=== PATIENT | female | born 1975 | race Native Hawaiian/Other Pacific Islander ===

== ENCOUNTER → 2016-07-30 | Outpatient (CLI) | payer MEDICAID ==
[~2016-07-30] MED LIST: EXCETAB PO; Z.0.NO CURRENT MEDS
[2016-07-30 11:07] LABS: HEMATOCRIT 36.5 % (35.0-46.0); MEAN CELL VOLUME 76.6 FL (80.0-100.0); MEAN CORPUSCULAR HEMOGLOBIN 25.1 PG (27.0-34.0); MEAN CORPUSCULAR HGB CONC 32.8 % (32.0-36.0); PLATELET COUNT 284 TH/MM3 (150-450); RED BLOOD COUNT 4.76 MIL/MM3 (4.00-5.30); REVIEW FLAG FINAL
[2016-07-30 11:28] LABS: BICARBONATE 25.8 MEQ/L (21.0-32.0); INDIRECT BILIRUBIN 0.5 MG/DL (0.0-0.8); POTASSIUM 4.2 MEQ/L (3.5-5.1); TOTAL BILIRUBIN ADULT 0.6 MG/DL (0.2-1.0)
== END ==
LOC: CPRE 09:16
PROVIDERS: ATTEND Obstetrics & Gynecology
DX: Z01.812 Encounter for preprocedural laboratory examination (principal); Z30.2 Encounter for sterilization; O02.1 Missed abortion
CPT/HCPCS: 36415; 80048; 80076; 85027; 86850; 86900; 86901

== ENCOUNTER → 2016-07-31 | Day surgery (SDC) | payer MEDICAID ==
[~2016-07-31] VITALS: Ht 152.4 cm; Wt 71.7 kg
[~2016-07-31] MED LIST changes: +*MEPERIDINE 25 MG INJ VIAL PERIprocedural Use ONLY ONE; +*ONDANSETRON 4 MG VIAL PERIprocedural Use ONLY ONE; +BUPIVACAINE/EPINEPHRINE 0.5% PF 30 ML VIAL ONE; +DEXAMETHASONE SOD PHOS 4 MG/ML VIAL ONE; +FAMOTIDINE 20 MG/2 ML VIAL ONE; +INSULIN HUMAN REGULAR 1,000 UNITS/10 ML VIAL SQ PRN; +LACTATED RINGER'S 1000 ML IV SCH; +METOPROLOL TARTRATE 25 MG TAB PO PRN; +MIDAZOLAM HCL 2 MG/2 ML VIAL ONE; +NEOSTIGMINE 3 MG/3 ML SYR IV ONE; +ONDANSETRON HCL 4 MG/2 ML VIAL IV PUSH ONE; +PROPOFOL 200 MG/20 ML AMP IV ONE; +SODIUM CHLORID 0.9% 500 ML IV SCH; -Z.0.NO CURRENT MEDS; +ceFAZolin 1,000 MG/NS 100 ML IV SCH; +fentaNYL CITRATE 250 MCG/5 ML AMP ONE
[2016-07-31 08:24] VITALS: BP 95/61; PULSE 83; RESP 16; TEMP 97.2; O2SAT 99
[2016-07-31 12:50] VITALS: BP 97/57; PULSE 65; RESP 16; TEMP 97.6; O2SAT 99
--- NOTE | 2016-08-04 09:13 | MP ---
cc: BEATRIS GONZALEZ DATE OF SURGERY 07/31/2016 PREOPERATIVE DIAGNOSIS Incomplete miscarriage and desire for sterility. POSTOPERATIVE DIAGNOSIS Incomplete miscarriage and desire for sterility. PROCEDURE Sharp and suction curettage, uterine curettage and laparoscopic bilateral tubal ligation. ANESTHESIA General endotracheal SURGEON Beatris Gonzalez MD CARPENTER MAINTENANCE Ginger Perales FINDINGS Examination under anesthesia revealed products of conception extruding from the os. The os was open about 1 cm. The D&C was performed unremarkably. Laparoscopic evaluation of the abdominal and pelvic contents revealed normal liver edge, gallbladder, pelvic contents with a normal-sized uterus, tubes and ovaries. Both tubes were burned in three places and then cut using laparoscopic scissors. There was no evidence of other pathology or iatrogenic injury. ESTIMATED BLOOD LOSS Negligible. PATHOLOGY Products of conception. COUNTS Sponge, instrument, needle count were correct. CONDITION The patient tolerated the tolerated the procedure well. PROCEDURE DETAILS The patient was identified as Bella Morales, her permit was reviewed in the holding. She was taken to the operating room, placed under general endotracheal anesthesia in the dorsal lithotomy position. She was given 1 gram Ancef IV within an hour of incision. She was prepped and draped in the usual sterile fashion and the bladder was emptied by the street sweeper operator. A time-out was performed with all in attendance. Examination under anesthesia was performed and the cervix was gently grasped and dilated to allow the passage of the side 8 curved curette. This was used to remove the products of conception followed by a banjo curette and then a final pass with the suction curette. Bimanual massage revealed a firm uterus. ____ peritoneal cavity the findings were as noted as above. Entering the peritoneal cavity was done by placing a small incision in the umbilicus, placing the trocar and sleeve through the incision and after assuring adequate entry, insufflating with 2 liters of CO2. Then a second set trocar and sleeve were placed in the suprapubic area. Then systematic evaluation of the abdominal and pelvic contents was performed with the findings as noted above. The right tube was grasped and held away from all other structures, burned in three places and then the left tube was treated the same. Then the laparoscopic scissors were used to cut these. There was no evidence of iatrogenic injury. No other intrinsic pathology. The pneumoperitoneum was released under visualization and the trocar sleeves were removed. The incisions were closed with single interrupted. The vaginal instrumentation was removed. She was placed in dorsal supine position, awoken and taken to the recovery room stable condition. MD DOUG Thomas/KK /2:02 PM /9:08 AM
== END | disposition home or self-care (01) ==
LOC: HSDC 07:49
PROVIDERS: ATTEND Obstetrics & Gynecology
DX: Z30.2 Encounter for sterilization (principal); O03.4 Incomplete spontaneous abortion without complication
CPT/HCPCS: 00851; 58671; 59820; J0690; J1100; J2175; J2250; J2405; J2710; J3010; J7120

== ENCOUNTER 2017-02-15 13:58 | Emergency (ER) | payer MEDICAID ==
[~2017-02-15] VITALS: Ht 152.4 cm; Wt 69.7 kg
[~2017-02-15 13:58] MED LIST changes: -*MEPERIDINE 25 MG INJ VIAL PERIprocedural Use ONLY ONE; -*ONDANSETRON 4 MG VIAL PERIprocedural Use ONLY ONE; -BUPIVACAINE/EPINEPHRINE 0.5% PF 30 ML VIAL ONE; -DEXAMETHASONE SOD PHOS 4 MG/ML VIAL ONE; -FAMOTIDINE 20 MG/2 ML VIAL ONE; -INSULIN HUMAN REGULAR 1,000 UNITS/10 ML VIAL SQ PRN; -LACTATED RINGER'S 1000 ML IV SCH; -METOPROLOL TARTRATE 25 MG TAB PO PRN; -MIDAZOLAM HCL 2 MG/2 ML VIAL ONE; -NEOSTIGMINE 3 MG/3 ML SYR IV ONE; -ONDANSETRON HCL 4 MG/2 ML VIAL IV PUSH ONE; -PROPOFOL 200 MG/20 ML AMP IV ONE; -SODIUM CHLORID 0.9% 500 ML IV SCH; -ceFAZolin 1,000 MG/NS 100 ML IV SCH; -fentaNYL CITRATE 250 MCG/5 ML AMP ONE
[2017-02-15 14:25] VITALS: BP 109/68; PULSE 73; RESP 16; TEMP 98.8; O2SAT 100
[2017-02-15] MEDS ORDERED: SODIUM CHLOR 0.9% 1000 ML INJ 1,000 ML IV SCH (15:31)
[2017-02-15] MEDS ORDERED: SODIUM CHLORIDE 0.9% FLUSH 10 ML FLUSH IV FLUSH PRN (15:45)
[2017-02-15] MEDS ORDERED: ONDANSETRON HCL 4 MG/2 ML VIAL IVP ONE (15:45)
[2017-02-15] MEDS ORDERED: PANTOPRAZOLE SODIUM 40 MG VIAL IV PUSH ONE (15:45)
[2017-02-15 16:00] LABS: AUTOMATED NEUTROPHIL # 3.4 TH/MM3 (1.8-7.7); BASOPHIL % 0.4 % (0.0-2.0); EOSINOPHIL # 0.1 TH/MM3 (0-0.4); EOSINOPHIL % 1.4 % (0.0-4.0); HEMATOCRIT 36.2 % (35.0-46.0); MEAN CELL VOLUME 72.8 FL (80.0-100.0); MEAN CORPUSCULAR HEMOGLOBIN 23.3 PG (27.0-34.0); MONO % 9.8 % (0.0-8.0); NEUT % 55.4 % (16.0-70.0); PLATELET COUNT 298 TH/MM3 (150-450); RED BLOOD COUNT 4.97 MIL/MM3 (4.00-5.30); RED CELL DISTRIBUTION WIDTH 14.7 % (11.6-17.2); WHITE BLOOD COUNT 6.1 TH/MM3 (4.0-11.0)
[2017-02-15 16:01] LABS: GLUCOSE,URINE NEG (NEG); KETONE, URINE NEG (NEG); NITRITE,URINE NEG (NEG)
[2017-02-15 16:03] LABS: BLOOD, URINE TRACE (NEG)
[2017-02-15 16:04] LABS: METHOD OF COLLECTION CLEAN CATCH; URINE COLOR YELLOW (YELLW/STRAW)
[2017-02-15 16:05] LABS: COMMENT (UR) CULT NOT INDICATED; CULTURE IF INDICATED CULT NOT INDICATED; RBC, URINE 0-3 /hpf (0-3); SQUAMOUS EPITHELIAL CELL URINE 0-5 /hpf (0-5); WBC, URINE 0-2 /hpf (0-5)
[2017-02-15 16:06] LABS: HEMO FLAGS AUTO DIFF
[2017-02-15 16:09] LABS: CHLORIDE 105 MEQ/L (98-107); POTASSIUM 3.8 MEQ/L (3.5-5.1); SODIUM (NA) 138 MEQ/L (136-145)
[2017-02-15 16:13] LABS: ANION GAP 8 MEQ/L (5-15); BICARBONATE 24.7 MEQ/L (21.0-32.0)
[2017-02-15 16:14] LABS: BLOOD UREA NITROGEN 7 MG/DL (7-18)
[2017-02-15 16:16] LABS: ALT (GPT) 24 U/L (10-53); AST (GOT) 30 U/L (15-37); GLOMERULAR FILTRATION RATE 111 ML/MIN (>89)
[2017-02-15 16:18] LABS: TOTAL BILIRUBIN ADULT 0.8 MG/DL (0.2-1.0)
[2017-02-15 16:19] LABS: ALKALINE PHOSPHATASE 87 U/L (45-117)
[2017-02-15 16:34] LABS: SCAN/DIFF AUTO DIFF CONFIRMED
[2017-02-15 16:57] VITALS: BP 106/77; PULSE 71; RESP 16; O2SAT 98
[2017-02-15] MEDS ORDERED: IOHEXOL 350 MG/ML 10 ML VIAL (for RAD DIAG) IVCONTRAST ONE (17:30)
--- NOTE | 2017-02-15 17:56 | RADRPT ---
EXAM DATE/TIME: 02/15/2017 17:25 [facility] COMPARISON: No previous studies available for comparison. INDICATIONS : Upper abdominal pain with nausea. IV CONTRAST: 95 cc Omnipaque 350 (iohexol) IV ORAL CONTRAST: No oral contrast ingested. RADIATION DOSE: 10.38 CTDIvol (mGy) MEDICAL HISTORY : None SURGICAL HISTORY : Appendectomy. ENCOUNTER: Initial ACUITY: 2 days PAIN SCALE: 5/10 LOCATION: upper quadrant TECHNIQUE: Volumetric scanning of the abdomen and pelvis was performed. Using automated exposure control and ad justment of the mA and/or kV according to patient size, radiation dose was kept as low as reasonably achievable to obtain optimal diagnostic quality images. DICOM format image data is available electro nically for review and comparison. FINDINGS: LOWER LUNGS: Trace groundglass opacities at the lung bases consistent with atelectasis. LIVER: Homogeneous density without lesion. There is no dilation of the biliary tree. No calcified gallston es. SPLEEN: Normal size without lesion. PANCREAS: Within normal limits. KIDNEYS: 2-3 mm calyceal calculus in the posterior mid right kidney. Kidneys otherwise demonstrate symmetrical enhancement without evidence for hydronephrosis ADRENAL GLANDS: Within normal limits. VASCULAR: There is no aortic aneurysm. BOWEL/MESENTERY: The stomach, small bowel, and colon demonstrate no acute abnormality. There is no free intraperitone al air or fluid. ABDOMINAL WALL: Within normal limits. RETROPERITONEUM: No significant adenopathy. BLADDER: No wall thickening or mass. REPRODUCTIVE: Small endometrial fluid. Otherwise, uterus and adnexa are unremarkable for age. INGUINAL: There is no lymphadenopathy or hernia. MUSCULOSKELETAL: Within normal limits for patient age. CONCLUSION: 1. 2-3 mm nonobstructing calyceal calculus in the posterior mid right kidney. 2. Small amount of endometrial fluid, likely related to patient's phase of menstrual cycle. 3. Otherwise, no acute CT findings to explain patient's abdominal pain. Kenny Rush MD on February 15, 2017 at 17:45 Board Certified Radiologist. This report was verified electronically.
--- NOTE | 2017-02-15 18:07 | PD ---
HPI Chief Complaint: Abdominal Pain Time Seen by Provider: 15:25 Travel History International Travel<30 days: No Contact w/Intl Traveler<30days: No Traveled to known affect area: No History of Present Illness HPI 42 y/o female presents with upper abdominal pain and nausea since last night. She denies other concurrent complaints. She states her last menstrual cycle was at the end of last month. Quality is sharp. Severity is mild. She denies migration the pain. She states she has had endoscopy at Dr guidry that was okay. She states she has been taking Excedrin for migraines recently. PFSH Past Medical History Cancer: No Cardiovascular Problems: No Diabetes: No Diminished Hearing: No Endocrine: No Genitourinary: No Headaches: Yes Hepatitis: No Hiatal Hernia: No Immune Disorder: No Musculoskeletal: Yes (CHRONIC BACK PAIN) Psychiatric: No Reproductive: Yes (MISCARAGE) Respiratory: No Migraines: Yes Thyroid Disease: No Tetanus Vaccination: > 5 Years Influenza Vaccination: No ?: Not LMP: 01/28/17 Menopausal: No : 4 Para: 4 Miscarriage: 2 Past Surgical History AICD: No Appendectomy: Yes Joint Replacement: No Pacemaker: No Social History Alcohol Use: No Tobacco Use: No Substance Use: No Allergies-Medications (Allergen,Severity, Reaction): Coded Allergies: ibuprofen (Unverified Adverse Reaction, Mild, stomach pain, 02/15/17) Reported Meds & Prescriptions Reported Meds & Active Scripts Active No Active Prescriptions or Reported Medications Review of Systems Except as stated in HPI: all other systems reviewed are Neg Physical Exam Narrative GENERAL: Well-nourished, well-developed patient. Well-appearing SKIN: Warm and dry. HEAD: Normocephalic and atraumatic. EYES: No injection or drainage. ENT: No nasal drainage noted. NECK: Supple, trachea midline. CARDIOVASCULAR: Regular rate and rhythm RESPIRATORY: Breath sounds equal bilaterally. No accessory muscle use. GASTROINTESTINAL: Abdomen soft, mild tenderness epigastric area, nondistended. EXTREMITIES: No edema. BACK: Nontender without obvious deformity. NEUROLOGICAL: Awake and alert. Motor and sensory grossly within normal limits. Normal speech. Data Data Last Documented VS Vital Signs Date Time Temp Pulse Resp B/P (MAP) Pulse Ox O2 Delivery O2 Flow Rate FiO2 02/15/17 18:25 68 16 109/74 (86) 98 02/15/17 16:57 Room Air 02/15/17 14:25 98.8 Orders Orders Complete Blood Count With Diff (02/15/17 15:31) Comprehensive Metabolic Panel (02/15/17 15:31) Lipase (02/15/17 15:31) Urinalysis - C+S If Indicated (02/15/17 15:31) Iv Access Insert/Monitor (02/15/17 15:31) Ecg Monitoring (02/15/17 15:31) Oximetry (02/15/17 15:31) NPO (02/15/17 15:31) Ondansetron Inj (Zofran Inj) (02/15/17 15:45) Sodium Chlor 0.9% 1000 Ml Inj (Ns 1000 M (02/15/17 15:31) Sodium Chloride 0.9% Flush (Ns Flush) (02/15/17 15:45) Ed Urine Pregnancytest Poc (02/15/17 15:31) Pantoprazole Inj (Protonix Inj) (02/15/17 15:45) Ct Abd/Pel W Iv Contrast(Rout) (02/15/17 ) Iohexol 350 Inj (Omnipaque 350 Inj) (02/15/17 17:30) Labs Laboratory Tests Test 02/15/17 15:50 White Blood Count 6.1 TH/MM3 Red Blood Count 4.97 MIL/MM3 Hemoglobin 11.6 GM/DL Hematocrit 36.2 % Mean Corpuscular Volume 72.8 FL Mean Corpuscular Hemoglobin 23.3 PG Mean Corpuscular Hemoglobin Concent 32.0 % Red Cell Distribution Width 14.7 % Platelet Count 298 TH/MM3 Mean Platelet Volume 7.6 FL Neutrophils (%) (Auto) 55.4 % Lymphocytes (%) (Auto) 33.0 % Monocytes (%) (Auto) 9.8 % Eosinophils (%) (Auto) 1.4 % Basophils (%) (Auto) 0.4 % Neutrophils # (Auto) 3.4 TH/MM3 Lymphocytes # (Auto) 2.0 TH/MM3 Monocytes # (Auto) 0.6 TH/MM3 Eosinophils # (Auto) 0.1 TH/MM3 Basophils # (Auto) 0.0 TH/MM3 CBC Comment AUTO DIFF Differential Comment AUTO DIFF CONFIRMED Urine Collection Type CLEAN CATCH Urine Color YELLOW Urine Turbidity CLEAR Urine pH 6.0 Urine Specific [place] 1.009 Urine Protein NEG mg/dL Urine Glucose (UA) NEG mg/dL Urine Ketones NEG mg/dL Urine Occult Blood TRACE Urine Nitrite NEG Urine Bilirubin NEG Urine Leukocyte Esterase TRACE Urine RBC 0-3 /hpf Urine WBC 0-2 /hpf Urine Squamous Epithelial Cells 0-5 /hpf Microscopic Urinalysis Comment CULT NOT INDICATED Blood Urea Nitrogen 7 MG/DL Creatinine 0.59 MG/DL Random Glucose 91 MG/DL Total Protein 7.8 GM/DL Albumin 3.6 GM/DL Calcium Level 9.4 MG/DL Alkaline Phosphatase 87 U/L Aspartate Amino Transf (AST/SGOT) 30 U/L Alanine Aminotransferase (ALT/SGPT) 24 U/L Total Bilirubin 0.8 MG/DL Sodium Level 138 MEQ/L Potassium Level 3.8 MEQ/L Chloride Level 105 MEQ/L Carbon Dioxide Level 24.7 MEQ/L Anion Gap 8 MEQ/L Estimat Glomerular Filtration Rate 111 ML/MIN Lipase 159 U/L MDM Medical Decision Making Medical Screen Exam Complete: Yes Emergency Medical Condition: Yes Medical Record Reviewed: Yes (past history confirmed) Interpretation(s) CBC & BMP Diagram 02/15/17 15:50 Total Protein 7.8, Albumin 3.6, Calcium Level 9.4, Alkaline Phosphatase 87, Aspartate Amino Transf (AST/SGOT) 30, Alanine Aminotransferase (ALT/SGPT) 24, Total Bilirubin 0.8 Last 24 hours Impressions Abdomen/Pelvis CT 02/15/17 0000 Signed Impressions: Service Date/Time: Wednesday, February 15, 2017 17:25 - CONCLUSION: 1. 2-3 mm nonobstructing calyceal calculus in the posterior mid right kidney. 2. Small amount of endometrial fluid, likely related to patient's phase of menstrual cycle. 3. Otherwise, no acute CT findings to explain patient's abdominal pain. Kenny Rush MD Beta is negative Differential Diagnosis Gastritis, pancreatitis, stone, diverticulitis Narrative Course Will check blood work, urinalysis, test and proceed with imaging Beta is negative will dose with Protonix and check CT scan Patient denies any new complaints and states that they are feeling better. Patient happy with care, all questions answered. Patient knows that follow up is incumbent on them and to return to the emergency room immediately if new or worsening symptoms develop. Patient given strict return precautions, vitals reviewed and are normal, agrees to further workup as an outpatient. Physician Communication Physician Communication dr guidry called and agrees to workup as ordered Diagnosis Primary Impression: Abdominal pain Qualified Codes: R10.9 - Unspecified abdominal pain Patient Instructions: General Instructions Additional Instructions: return as needed, follow with primary this week, tylenol as needed Med/Other Pt SpecificInfo: No Change to Meds Scripts No Active Prescriptions or Reported Meds Disposition: 01 DISCHARGE HOME Condition: Stable Whitney Ramires MD Feb 15, 2017 18:07
[2017-02-15 18:25] VITALS: BP 109/74
== END 2017-02-15 18:30 | disposition home or self-care (01) ==
LOC: PHED 13:58
DX: R10.10 Upper abdominal pain, unspecified (principal); R11.0 Nausea
CPT/HCPCS: 74177; 80053; 81001; 83690; 84703; 85025; 96361; 96374; 96375; 99285; C9113; J2405; J7030; Q9967